=== PATIENT | male | born 1940 | race African-American/Black ===

== ENCOUNTER 2019-09-21 06:34 | Emergency (ER) | payer OTHER ==
[~2019-09-21] VITALS: Ht 175.3 cm; Wt 87.6 kg
[~2019-09-21 06:34] MED LIST: ASCO100076 PO; ATOR40TA52 PO; CLOP75TA41 PO; COEN100C15 PO; FERR27TA2 PO; IBUP800T24 PO; MAGN250T22 PO; METO-158 PO; PANT40T PO; RANI150C11 PO; TADA5TAB11 PO
[2019-09-21 06:39] VITALS: BP 134/85
== END 2019-09-21 08:02 | disposition home or self-care (01) ==
LOC: ER 06:37
DX: M10.9 Gout, unspecified (principal); M25.532 Pain in left wrist; E78.5 Hyperlipidemia, unspecified; I10 Essential (primary) hypertension; Z88.6 Allergy status to analgesic agent; Z79.899 Other long term (current) drug therapy
CPT/HCPCS: 93971

== ENCOUNTER 2022-05-26 16:51 | Emergency (ER) | payer OTHER ==
[~2022-05-26] VITALS: Ht 172.7 cm; Wt 84.5 kg
[~2022-05-26 16:51] MED LIST changes: -CLOP75TA41 PO; +CLOP75TA70 PO; -IBUP800T24 PO; +IBUP800T27 PO
[2022-05-26 17:17] VITALS: BP 109/76
== END 2022-05-26 19:26 | disposition left against medical advice (07) ==
LOC: ER 16:51
DX: H57.89 Other specified disorders of eye and adnexa (principal); Z53.21 Procedure and treatment not carried out due to patient leaving prior to being seen by health care provider